=== PATIENT | male | born 1960 | race Caucasian/White ===

== ENCOUNTER 2020-05-28 10:00 | Emergency (ER) | payer OTHER ==
[~2020-05-28] VITALS: Ht 170.2 cm; Wt 106.6 kg
[2020-05-28] MEDS ORDERED: TYLENOL # 31 EA PO (10:35)
[2020-05-28] MEDS ORDERED: ZOFRAN4 MG PO (10:35)
[2020-05-28] MEDS ORDERED: MUCINEX DM ER1 EACH PO (10:38)
[2020-05-28 10:44] VITALS: BP 147/70
[2020-05-28] MEDS ORDERED: BAMLANIVIMAB 700 MG/20 ML VIAL IV ONE (11:15)
[2020-05-28] MEDS ORDERED: BAMLANIVIMAB 700 MG in SODIUM CHLORIDE 0.9% 250ML 250 ML IV ONE (11:30)
[2020-05-28] MEDS ORDERED: ACETAMINOPHEN 325 MG TAB PO ONE (13:45)
[2020-05-28] MEDS ORDERED: ACETAMINOPHEN 325 MG TAB ONE (13:56)
== END 2020-05-28 13:45 | disposition home or self-care (01) ==
LOC: ER 10:07
DX: U07.1 COVID-19 (principal); J11.1 Influenza due to unidentified influenza virus with other respiratory manifestations; R50.9 Fever, unspecified; R05 Cough
CPT/HCPCS: 71045; 99283; J7050

== ENCOUNTER 2024-07-10 09:47 | Outpatient (RCR) | payer OTHER ==
[~2024-07-10 09:47] MED LIST: MUCINEX DM ER1 EACH PO; TYLENOL # 31 EA PO; ZOFRAN4 MG PO
== END 2024-07-12 ==
LOC: PT 09:47
PROVIDERS: ATTEND Physical Medicine & Rehabilitation Sports Medicine
DX: M54.42 Lumbago with sciatica, left side (principal); G89.29 Other chronic pain

== ENCOUNTER 2024-07-15 12:00 | Outpatient (RCR) | payer OTHER | END 2024-08-12 | LOC: PT 12:00 | PROVIDERS: ATTEND Physical Medicine & Rehabilitation Sports Medicine | DX: M54.42 Lumbago with sciatica, left side (principal) ==